=== PATIENT | female | born 1980 | race Caucasian/White ===

== ENCOUNTER 2018-01-26 13:25 | Emergency (ER) | payer OTHER ==
[2018-01-26 13:30] VITALS: BP 113/73; PULSE 86; TEMP 98.2; BMI 27.5
--- NOTE | 2018-01-26 14:01 | PDOC ---
History of Present Illness - General Chief Complaint: Headache Stated Complaint: HEADACHE, NUMBNESS Time Seen by Provider: 01/26/18 13:32 History Source: Patient Exam Limitations: No Limitations - History of Present Illness Initial Comments: CHIEF COMPLAINT: 37 y/o afebrile female with no significant PMH c/o right sided facial headache that feels like tension. HISTORY OF PRESENT ILLNESS: Patient states it started today. She also c/o nausea. She denies fever, head trauma, v/d, neck pain, CP, SOB, abd pain. Pt took no medication for pain. Vital signs on arrival are within normal limits. REVIEW OF SYSTEMS: GENERAL/CONSTITUTIONAL: No fever/chills. No weakness. No weight change. HEAD, EYES, EARS, NOSE AND THROAT: No change in vision. No ear pain or discharge. No sore throat. CARDIOVASCULAR: No chest pain or shortness of breath. RESPIRATORY: No cough, wheezing, or hemoptysis. GASTROINTESTINAL: +nausea. No vomiting, diarrhea or constipation. GENITOURINARY: No dysuria, frequency, or change in urination. MUSCULOSKELETAL: No joint or muscle swelling or pain. No neck or back pain. SKIN: No rash or easy bruising. NEUROLOGIC: +headache. No vertigo, loss of consciousness, or loss of sensation. PHYSICAL EXAM: GENERAL: The patient is awake, alert, and fully oriented, in no acute distress. She is well appearing and ambulatory. HEAD: Normal with no signs of trauma. No hematomas. NECK: Some TTP of right trapezius and scalene muscles. Full ROM of cervical spine. ENT: Pupils equal, round and reactive to light, extraocular movements intact, sclera anicteric, conjunctiva clear. No nystagmus. LUNGS: Clear to auscultation bilaterally. Normal excursion. No respiratory distress or use of accessory muscles. CV: RRR, S1/S2, no MRG. Cap refill < 2 sec. ABDOMEN: Soft, non-distended, non-tender even to deep palpation, no hepatomegaly or splenomegaly, no masses. EXTREMITIES: Normal range of motion, no edema. NEUROLOGICAL: Normal speech, normal gait. CN II-XII grossly intact. Normal finger to nose. Normal rapid alternating movements. PSYCH: Normal mood, normal affect. SKIN: Warm, dry, normal turgor, no rashes or lesions noted. Past History - Past Medical History Allergies/Adverse Reactions: Allergies Allergy/AdvReac Type Severity Reaction Status Date / Time No Known Allergies Allergy Verified 01/26/18 13:31 Home Medications: Ambulatory Orders NK [No Known Home Medication] 01/26/18 COPD: No - Surgical History Abdominal Surgery: Yes (GASTRIC) - Suicide/Smoking/Psychosocial Hx Smoking History: Never smoked *Physical Exam - Vital Signs Last Vital Signs Temp Pulse Resp BP Pulse Ox 98.2 F 86 18 113/73 100 01/26/18 13:28 01/26/18 13:28 01/26/18 13:28 01/26/18 13:28 01/26/18 13:28 Medical Decision Making - Medical Decision Making A/P: 37 y/o female with what sounds like a tension headache. Plan is as follows: 1. hcg hcg - negative 2. IM toradol and decadron After toradol and decadron patient states her headache has resolved. Will discharge to home with instructions to take Motrin every 6 hours for headache, drink plenty of fluids and f/u with Dr. Del Cid on Monday. The patient verbalizes understanding of all instructions, has no further questions and is awaiting discharge. *DC/Admit/Observation/Transfer Diagnosis at time of Disposition: Headache Qualifiers: Headache type: tension-type Headache chronicity pattern: acute headache Intractability: not intractable Qualified Code(s): G44.209 - Tension-type headache, unspecified, not intractable - Discharge Dispostion Disposition: HOME Condition at time of disposition: Improved - Referrals Referrals: ON STAFF,NOT [Primary Care Provider] - Deon Del Cid MD [Staff Physician] - (Call Monday) - Patient Instructions Printed Discharge Instructions: DI for Hormonal and Tension Headaches, DI for Headache Additional Instructions: Discharge Instructions: -You most likely have a tension type headache -Please take 600mg of over the counter ibuprofen every 6 hours for headache -Drink at least 64 oz of water daily -Call Dr. Del Cid on Monday to schedule follow up appointment -Return to the ER with any worsening or concerning symptoms Instrucciones de descarga: -Tu ms probable es que tengas dolor de va tipo tensional - Lillian 600 mg de ibuprofeno sin receta cada 6 horas para el dolor de va -Nikki al menos 64 oz de agua al da [place] al [place] el ambrocio para programar dede mickey de seguimiento -Volver a la rama de urgencias con cualquier empeoramiento o sntomas Print Language: [place] - Post Discharge Activity
[2018-01-26] MEDS ORDERED: DEXAMETHASONE SOD PHOSPHATE 10 MG/1 ML VIAL IM ONE (15:06)
[2018-01-26] MEDS ORDERED: KETOROLAC TROMETHAMINE 60 MG/2 ML VIAL IM ONE (15:06)
[2018-01-26] MEDS ORDERED: KETOROLAC TROMETHAMINE 60 MG/2 ML VIAL ONE (15:12)
[2018-01-26] MEDS ORDERED: DEXAMETHASONE SOD PHOSPHATE 10 MG/1 ML VIAL ONE (15:12)
== END 2018-01-26 15:54 | disposition home or self-care (01) ==
LOC: JERFT 13:25
PROC: 3E0233Z Introduction of Anti-inflammatory into Muscle, Percutaneous Approach (ICD-10-PCS; principal; 2018-01-26)
PROC: 3E0233Z Introduction of Anti-inflammatory into Muscle, Percutaneous Approach (ICD-10-PCS; 2018-01-26)
DX: G44.209 Tension-type headache, unspecified, not intractable (principal)
CPT/HCPCS: 84703; 99281-25; J1100

== ENCOUNTER 2020-07-30 11:37 | Emergency (ER) | payer SELFPAY ==
[2020-07-30 11:46] VITALS: BP 115/80; PULSE 93; TEMP 98.3; BMI 28.3
[2020-07-30 13:53] LABS: BASO % 0.9 % (0-2.0); EOS % 2.4 % (0-4.5); HEMATOCRIT 39.9 % (32.4-45.2); HEMOGLOBIN 13.6 GM/dL (10.7-15.3); LYMPH % 27.9 % (8-40); MCH 30.9 pg (25.7-33.7); MCHC 34.2 g/dl (32.0-36.0); MEAN CELL VOLUME 90.3 fl (80-96); MEAN PLT VOLUME 8.7 fl (7.5-11.1); MONO % 8.3 % (3.8-10.2); NEUT % 60.5 % (42.8-82.8); PLATELET COUNT 285 K/MM3 (134-434); RBC 4.42 M/mm3 (3.60-5.2); RDW 13.2 % (11.6-15.6); WHITE BLOOD COUNT 4.4 K/mm3 (4.0-10.0)
[2020-07-30 14:01] LABS: INR 0.86 (0.83-1.09); PROTHROMBIN TIME (PATIENT) 10.5 SEC (9.7-13.0)
[2020-07-30 14:04] LABS: ACTIVATED PTT 32.2 SECONDS (25.2-36.5)
[2020-07-30 14:17] LABS: CHLORIDE 106 mmol/L (98-107); POTASSIUM 4.2 mmol/L (3.5-5.1); SODIUM 137 mmol/L (136-145)
[2020-07-30 14:19] LABS: CALCIUM 8.7 mg/dL (8.5-10.1); GLUCOSE,RANDOM 96 mg/dL (74-106)
[2020-07-30 14:20] LABS: ALBUMIN 3.8 g/dl (3.4-5.0); ANION GAP 5 MMOL/L (8-16); BLOOD UREA NITROGEN 8.3 mg/dL (7-18); CO2 26 mmol/L (21-32)
[2020-07-30 14:23] LABS: CREATININE 0.6 mg/dL (0.55-1.3); SGOT/AST 19 U/L (15-37); SGPT/ALT 26 U/L (13-61)
[2020-07-30 14:24] LABS: BILIRUBIN,TOTAL 0.3 mg/dL (0.2-1); TOT PROT 7.3 g/dl (6.4-8.2)
[2020-07-30 14:25] LABS: ALK PHOS 95 U/L (45-117)
[2020-07-30] MEDS ORDERED: NAPROXEN 500 MG TABLET PO ONE (15:01)
[2020-07-30] MEDS ORDERED: NAPROXEN 500 MG TABLET ONE (15:06)
== END 2020-07-30 15:09 | disposition home or self-care (01) ==
LOC: JER 11:37
DX: R07.89 Other chest pain (principal)
CPT/HCPCS: 36415; 71046-TC-FY; 80053; 82550; 84484; 84703; 85025; 85610; 85730; 93005; 93010; 99284-25

== ENCOUNTER 2020-12-24 08:21 | Emergency (ER) | payer OTHER ==
[2020-12-24 08:32] VITALS: BP 112/74; PULSE 75; TEMP 98.3; BMI 27.9
[2020-12-24] MEDS ORDERED: ASPIRIN 81 MG CHEWABLE TABLETS PO ONE (10:15)
[2020-12-24] MEDS ORDERED: ACETAMINOPHEN 500 MG TABLET (FP) PO ONE (10:16)
[2020-12-24] MEDS ORDERED: ACETAMINOPHEN 500 MG TABLET (FP) ONE (11:22)
[2020-12-24] MEDS ORDERED: ASPIRIN 81 MG CHEWABLE TABLETS ONE (11:31)
[2020-12-24 11:51] LABS: BASO % 0.7 % (0-2.0); EOS % 1.3 % (0-4.5); HEMOGLOBIN 13.7 GM/dL (10.7-15.3); LYMPH % 28.8 % (8-40); MCH 30.9 pg (25.7-33.7); MCHC 34.3 g/dl (32.0-36.0); MEAN CELL VOLUME 90.1 fl (80-96); MEAN PLT VOLUME 9.1 fl (7.5-11.1); NEUT % 62.2 % (42.8-82.8); PLATELET COUNT 269 10^3/uL (134-434); RBC 4.44 M/mm3 (3.60-5.2); RDW 13.5 % (11.6-15.6); WHITE BLOOD COUNT 3.7 K/mm3 (4.0-10.0)
[2020-12-24 11:53] LABS: EPI CELLS 9 /uL (0-25.1); HYALINE CASTS 0 /uL (0-3.1); PH,URINE 8.5 (5.0-8.0); URINE APPEARANCE CLEAR; URINE BACTERIA 1383 /uL (0-1359); URINE BILIRUBIN NEGATIVE (NEGATIVE); URINE COLOR YELLOW; URINE GLUCOSE (UA) NEGATIVE (NEGATIVE); URINE KETONE NEGATIVE (NEGATIVE); URINE LEUK ESTERASE NEGATIVE (NEGATIVE); URINE NITRITE NEGATIVE (NEGATIVE); URINE PROTEIN NEGATIVE (NEGATIVE); URINE RBC 6 /uL (0-23.9); URINE UROBILINOGEN 0.2 mg/dL (0.2-1.0); URINE WBC 7 /uL (0-25.8)
[2020-12-24 11:59] LABS: HCG,QUALITATIVE URINE NEGATIVE
[2020-12-24 12:03] LABS: CHLORIDE 106 mmol/L (98-107); SODIUM 139 mmol/L (136-145)
[2020-12-24 12:04] LABS: ALBUMIN 3.6 g/dl (3.4-5.0)
[2020-12-24 12:05] LABS: ANION GAP 5 MMOL/L (8-16); CO2 28 mmol/L (21-32); GLUCOSE,RANDOM 109 mg/dL (74-106); MAGNESIUM 2.2 mg/dL (1.8-2.4)
[2020-12-24 12:08] LABS: CREATININE 0.7 mg/dL (0.55-1.3); SGOT/AST 25 U/L (15-37); SGPT/ALT 30 U/L (13-61)
[2020-12-24 12:10] LABS: BILIRUBIN,TOTAL 0.4 mg/dL (0.2-1); TOT PROT 7.1 g/dl (6.4-8.2)
[2020-12-24 12:11] LABS: ALK PHOS 70 U/L (45-117)
== END 2020-12-24 12:30 | disposition home or self-care (01) ==
LOC: JER 08:21
DX: M94.0 Chondrocostal junction syndrome [Tietze] (principal)
CPT/HCPCS: 36415; 71046-TC-FY; 80053; 81003; 82550; 83735; 84484; 84703; 85025; 93005; 93010; 99285-25

== ENCOUNTER 2022-01-17 12:41 | Emergency (ER) | payer OTHER ==
[2022-01-17 12:52] VITALS: BP 126/81; PULSE 82; RESP 17; TEMP 97.5; BMI 28.8
[2022-01-17] MEDS ORDERED: IBUPROFEN 400 MG TABLET (FP) PO ONE ×2 (13:31→13:32)
== END 2022-01-17 14:34 | disposition home or self-care (01) ==
LOC: JERFT 12:41
DX: R07.9 Chest pain, unspecified (principal)
CPT/HCPCS: 71046-TC-FY; 93005; 93010; 99284-25

== ENCOUNTER 2022-11-03 08:45 | Emergency (ER) | payer OTHER ==
[2022-11-03 08:55] VITALS: BP 121/87; PULSE 71; RESP 17; TEMP 98.3; BMI 30.9
[2022-11-03] MEDS ORDERED: MECLIZINE HCL 25 MG TABLET (FP) PO ONE (09:49)
[2022-11-03] MEDS ORDERED: MECLIZINE HCL 25 MG TABLET (FP) ONE (09:50)
== END 2022-11-03 09:59 | disposition home or self-care (01) ==
LOC: JERFT 08:45 → JER 08:45 → JERFT 09:59
DX: R42 Dizziness and giddiness (principal); H93.8X1 Other specified disorders of right ear; H93.11 Tinnitus, right ear; H92.01 Otalgia, right ear
CPT/HCPCS: 99283-25

== ENCOUNTER 2023-01-27 19:36 | Inpatient (IN) | payer OTHER ==
[2023-01-27 19:43] VITALS: BMI 29.9
[2023-01-27] MEDS ORDERED: SODIUM CHLORIDE 1,000 ML IV STA (20:11)
[2023-01-27] MEDS ORDERED: ONDANSETRON 4 MG/2 ML VIAL IVPUSH ONE (20:12)
[2023-01-27] MEDS ORDERED: ACETAMINOPHEN 1000 MG/100 ML BAG IVPB ONE (20:17)
[2023-01-27] MEDS ORDERED: ONDANSETRON 4 MG/2 ML VIAL ONE (20:17)
[2023-01-27] MEDS ORDERED: FAMOTIDINE 20 MG/50 ML IVPB 20 MG/50 ML MG IVPB ONE ×2 (20:18→20:20)
[2023-01-27] MEDS ORDERED: ACETAMINOPHEN INJECTION 100 ML IVPB ONE (20:19)
[2023-01-27] MEDS ORDERED: MAG HYDROX/AL HYDROX/SIMETH -MYLANTA- ORAL SUSPENSION PO ONE (20:42)
[2023-01-27] MEDS ORDERED: SUCRALFATE 1 GM TABLET (FP) PO ONE (20:42)
[2023-01-27] MEDS ORDERED: METOCLOPRAMIDE HCL INJECTION 10 MG/2 ML VIAL IVPB ONE (20:42)
[2023-01-27 20:54] LABS: BASO % 0.7 % (0-2.0); EOS % 0.8 % (0-4.5); HEMATOCRIT 37.4 % (32.4-45.2); HEMOGLOBIN 12.5 GM/dL (10.7-15.3); LYMPH % 21.8 % (8-40); MCH 27.7 pg (25.7-33.7); MCHC 33.3 g/dl (32.0-36.0); MEAN CELL VOLUME 83.3 fl (80-96); MEAN PLT VOLUME 8.4 fl (7.5-11.1); MONO % 10.7 % (3.8-10.2); PLATELET COUNT 349 10^3/uL (134-434); RBC 4.49 M/mm3 (3.60-5.2); RDW 15.6 % (11.6-15.6); WHITE BLOOD COUNT 7.3 K/mm3 (4.0-10.0)
[2023-01-27] MEDS ORDERED: SUCRALFATE 1 GM TABLET (FP) ONE (20:59)
[2023-01-27] MEDS ORDERED: METOCLOPRAMIDE HCL INJECTION 10 MG/2 ML VIAL ONE (21:00)
[2023-01-27] MEDS ORDERED: MAG HYDROX/AL HYDROX/SIMETH 30 ML UNIT-DOSE CUP ONE (21:00)
[2023-01-27 21:06] LABS: CALCIUM 8.6 mg/dL (8.5-10.1)
[2023-01-27 21:07] LABS: ALBUMIN 3.6 g/dl (3.4-5.0); BLOOD UREA NITROGEN 9.3 mg/dL (7-18)
[2023-01-27 21:10] LABS: CREATININE 0.7 mg/dL (0.55-1.3)
[2023-01-27 21:11] LABS: BILIRUBIN,TOTAL 0.4 mg/dL (0.2-1); TOT PROT 7.6 g/dl (6.4-8.2)
[2023-01-27 22:26] LABS: EPI CELLS 7 /uL (0-25.1); HYALINE CASTS 0 /uL (0-3.1); URINE APPEARANCE CLEAR; URINE BACTERIA 291 /uL (0-1359); URINE BILIRUBIN NEGATIVE (NEGATIVE); URINE COLOR YELLOW; URINE GLUCOSE (UA) NEGATIVE (NEGATIVE); URINE KETONE NEGATIVE (NEGATIVE); URINE LEUK ESTERASE NEGATIVE (NEGATIVE); URINE NITRITE NEGATIVE (NEGATIVE); URINE PROTEIN NEGATIVE (NEGATIVE); URINE RBC 41 /uL (0-23.9); URINE WBC 4 /uL (0-25.8)
[2023-01-28] MEDS ORDERED: SODIUM CHLORIDE 0.9% 500 ML INFUS.BAG IV ONE ×2 (01:30→04:02)
[2023-01-28 03:16] LABS: MAGNESIUM 1.9 mg/dL (1.8-2.4)
[2023-01-28] MEDS ORDERED: LORazepam 1 MG TABLET PO ONE (03:25)
[2023-01-28] MEDS ORDERED: LORazepam 1 MG TABLET ONE (03:33)
[2023-01-28] MEDS ORDERED: chlordiazePOXIDE HCL 25 MG CAPSULE PO PRN (05:26)
[2023-01-28] MEDS ORDERED: ONDANSETRON 4 MG/2 ML VIAL IVPUSH PRN (05:40)
[2023-01-28] MEDS ORDERED: LACTATED RINGERS SOLUTION 1,000 ML/1,000 ML INFUS.BAG IV SCH (05:45)
[2023-01-28 05:56] LABS: METHADONE, UR NEGATIVE (NEGATIVE); PHENCYCLIDINE,URINE NEGATIVE (NEGATIVE)
[2023-01-28 05:57] LABS: COCAINE, UR NEGATIVE (NEGATIVE); OPIATES, URI NEGATIVE (NEGATIVE); URINE BARBITURATES NEGATIVE (NEGATIVE)
[2023-01-28 06:14] LABS: URINE AMPHETAMINES NEGATIVE (NEGATIVE); URINE BENZODIAZEPINES NEGATIVE (NEGATIVE)
[2023-01-28 08:24] LABS: HEMATOCRIT 35.5 % (32.4-45.2); HEMOGLOBIN 11.4 GM/dL (10.7-15.3); MCH 27.2 pg (25.7-33.7); MCHC 32.2 g/dl (32.0-36.0); MEAN CELL VOLUME 84.3 fl (80-96); MEAN PLT VOLUME 8.5 fl (7.5-11.1); PLATELET COUNT 302 10^3/uL (134-434); RBC 4.21 M/mm3 (3.60-5.2); RDW 15.5 % (11.6-15.6); WHITE BLOOD COUNT 6.8 K/mm3 (4.0-10.0)
[2023-01-28 08:43] LABS: POTASSIUM 3.4 mmol/L (3.5-5.1)
[2023-01-28 08:53] LABS: ALBUMIN 3.4 g/dl (3.4-5.0); BLOOD UREA NITROGEN 7.1 mg/dL (7-18)
[2023-01-28 08:56] LABS: CREATININE 0.7 mg/dL (0.55-1.3)
[2023-01-28 08:57] LABS: BILIRUBIN,DIRECT 1.2 mg/dL (0.0-0.2); BILIRUBIN,TOTAL 1.6 mg/dL (0.2-1)
[2023-01-28 08:58] LABS: TOT PROT 6.9 g/dl (6.4-8.2)
[2023-01-28] MEDS: FAMOTIDINE 20 MG/50 ML IVPB 20 MG/50 ML MG IVPB SCH ×2 (09:19→22:23)
[2023-01-28 11:04] LABS: MAGNESIUM 1.7 mg/dL (1.8-2.4)
[2023-01-28] MEDS: chlordiazePOXIDE HCL 25 MG CAPSULE PO SCH ×3 (11:24→22:23)
[2023-01-28] MEDS: LACTATED RINGERS SOLUTION 1,000 ML/1,000 ML INFUS.BAG IV SCH (12:17)
[2023-01-28] MEDS: KCL 10 MEQ IVPB 10 MEQ/100 ML INFUS.BAG IVPB SCH ×2 (12:21→14:35)
[2023-01-28 12:31] LABS: INR 1.17 (0.83-1.09); PROTHROMBIN TIME (PATIENT) 13.6 SEC (9.7-13.0)
[2023-01-28] MEDS ORDERED: HEPARIN NA (PORCINE) 5,000 UNITS/ML 1ML VIAL SQ SCH (22:00)
[2023-01-28] MEDS: MELATONIN 5 MG TABLETS PO PRN (23:07)
[2023-01-29] MEDS: chlordiazePOXIDE HCL 25 MG CAPSULE PO SCH ×4 (06:06→22:33)
[2023-01-29 08:52] LABS: BASO % 0.7 % (0-2.0); EOS % 2.6 % (0-4.5); HEMATOCRIT 34.1 % (32.4-45.2); HEMOGLOBIN 11.1 GM/dL (10.7-15.3); LYMPH % 15.9 % (8-40); MCH 27.6 pg (25.7-33.7); MCHC 32.6 g/dl (32.0-36.0); MEAN CELL VOLUME 84.8 fl (80-96); MEAN PLT VOLUME 8.6 fl (7.5-11.1); MONO % 10.5 % (3.8-10.2); NEUT % 70.3 % (42.8-82.8); PLATELET COUNT 265 10^3/uL (134-434); RBC 4.02 M/mm3 (3.60-5.2); RDW 15.7 % (11.6-15.6); WHITE BLOOD COUNT 3.9 K/mm3 (4.0-10.0)
[2023-01-29 08:54] LABS: INR 1.33 (0.83-1.09); PROTHROMBIN TIME (PATIENT) 15.4 SEC (9.7-13.0)
[2023-01-29 09:11] LABS: POTASSIUM 3.7 mmol/L (3.5-5.1)
[2023-01-29 09:16] LABS: ALBUMIN 2.8 g/dl (3.4-5.0); BILIRUBIN,DIRECT 1.4 mg/dL (0.0-0.2); BLOOD UREA NITROGEN 3.6 mg/dL (7-18); CALCIUM 8.3 mg/dL (8.5-10.1)
[2023-01-29] MEDS: FAMOTIDINE 20 MG/50 ML IVPB 20 MG/50 ML MG IVPB SCH ×2 (09:17→22:33)
[2023-01-29 09:19] LABS: CREATININE 0.5 mg/dL (0.55-1.3)
[2023-01-29 09:21] LABS: BILIRUBIN,TOTAL 1.9 mg/dL (0.2-1)
[2023-01-29] MEDS: PIPERACILLIN/TAZOB 3.375 GM 3.375 GM in DEXTROSE 5%-WATER - 50 ML IVPB SCH ×2 (12:05→17:07)
[2023-01-29] MEDS: LACTATED RINGERS SOLUTION 1,000 ML/1,000 ML INFUS.BAG IV SCH ×2 (17:07→17:47)
[2023-01-29] MEDS: MELATONIN 5 MG TABLETS PO PRN (22:34)
[2023-01-30] MEDS: PIPERACILLIN/TAZOB 3.375 GM 3.375 GM in DEXTROSE 5%-WATER - 50 ML IVPB SCH ×3 (01:21→18:09)
[2023-01-30] MEDS: chlordiazePOXIDE HCL 25 MG CAPSULE PO SCH ×4 (05:49→22:48)
[2023-01-30] MEDS: LACTATED RINGERS SOLUTION 1,000 ML/1,000 ML INFUS.BAG IV SCH ×2 (05:51→13:58)
[2023-01-30 09:18] LABS: EOS % 3.7 % (0-4.5); HEMATOCRIT 37.6 % (32.4-45.2); LYMPH % 25.6 % (8-40); MCH 27.2 pg (25.7-33.7); MEAN CELL VOLUME 85.1 fl (80-96); MEAN PLT VOLUME 8.6 fl (7.5-11.1); MONO % 9.9 % (3.8-10.2); NEUT % 59.8 % (42.8-82.8); PLATELET COUNT 300 10^3/uL (134-434); RBC 4.42 M/mm3 (3.60-5.2); WHITE BLOOD COUNT 3.4 K/mm3 (4.0-10.0)
[2023-01-30] MEDS: FAMOTIDINE 20 MG/50 ML IVPB 20 MG/50 ML MG IVPB SCH ×2 (09:18→22:48)
[2023-01-30 09:44] LABS: CHLORIDE 109 mmol/L (98-107); POTASSIUM 4.2 mmol/L (3.5-5.1); SODIUM 141 mmol/L (136-145)
[2023-01-30 09:46] LABS: ALBUMIN 3.1 g/dl (3.4-5.0); ANION GAP 5 MMOL/L (8-16); CALCIUM 8.8 mg/dL (8.5-10.1); CO2 27 mmol/L (21-32)
[2023-01-30 09:47] LABS: GLUCOSE,RANDOM 110 mg/dL (74-106)
[2023-01-30 09:49] LABS: CREATININE 0.7 mg/dL (0.55-1.3)
[2023-01-30 09:50] LABS: BILIRUBIN,TOTAL 0.7 mg/dL (0.2-1); SGOT/AST 167 U/L (15-37); SGPT/ALT 595 U/L (13-61); TOT PROT 6.7 g/dl (6.4-8.2)
[2023-01-30 09:52] LABS: ALK PHOS 201 U/L (45-117)
[2023-01-30 09:53] LABS: BLOOD UREA NITROGEN 2.8 mg/dL (7-18)
[2023-01-30 12:11] LABS: POTASSIUM 4.2 mmol/L (3.5-5.1)
[2023-01-30 12:13] LABS: BLOOD UREA NITROGEN 3.1 mg/dL (7-18)
[2023-01-30 12:17] LABS: CREATININE 0.6 mg/dL (0.55-1.3)
[2023-01-30] MEDS: DOCUSATE SODIUM 100 MG CAPSULE (FP) PO SCH (13:54)
[2023-01-30] MEDS: THIAMINE HCL 100 MG TABLET (FP) PO SCH (13:55)
[2023-01-30] MEDS: FOLIC ACID 1 MG TABLET (FP) PO SCH (13:55)
[2023-01-30] MEDS: MULTIVITAMINS (DAILY MVI) TABLET (FP) PO SCH (13:55)
[2023-01-31] MEDS: LACTATED RINGERS SOLUTION 1,000 ML/1,000 ML INFUS.BAG IV SCH ×4 (01:19→20:13)
[2023-01-31] MEDS: PIPERACILLIN/TAZOB 3.375 GM 3.375 GM in DEXTROSE 5%-WATER - 50 ML IVPB SCH ×2 (01:19→09:39)
[2023-01-31] MEDS: chlordiazePOXIDE HCL 10 MG CAPSULE PO SCH ×4 (05:49→22:12)
[2023-01-31] MEDS: DOCUSATE SODIUM 100 MG CAPSULE (FP) PO SCH (09:39)
[2023-01-31] MEDS: MULTIVITAMINS (DAILY MVI) TABLET (FP) PO SCH (09:39)
[2023-01-31] MEDS: THIAMINE HCL 100 MG TABLET (FP) PO SCH (09:39)
[2023-01-31] MEDS: FOLIC ACID 1 MG TABLET (FP) PO SCH (09:39)
[2023-01-31] MEDS: FAMOTIDINE 20 MG/50 ML IVPB 20 MG/50 ML MG IVPB SCH ×2 (10:45→22:10)
[2023-01-31] MEDS ORDERED: PROPOFOL 20 ML ONE (13:10)
[2023-01-31] MEDS ORDERED: ROCURONIUM BROMIDE 50 MG/5 ML SYRINGE ONE (13:10)
[2023-01-31] MEDS ORDERED: ceFAZolin SODIUM 1 GM VIAL ONE ×2 (13:46)
[2023-01-31] MEDS ORDERED: KETOROLAC TROMETHAMINE 30 MG/1 ML VIAL ONE ×2 (13:46)
[2023-01-31] MEDS ORDERED: BUPIVACAINE HCL/PF 0.25% (2.5MG/ML) 10 ML VIAL IJ ONE ×2 (13:46)
[2023-01-31] MEDS ORDERED: ONDANSETRON 4 MG/2 ML VIAL ONE (13:46)
[2023-01-31] MEDS ORDERED: DEXAMETHASONE SOD PHOSPHATE 4 MG/1 ML VIAL ONE (13:46)
[2023-01-31] MEDS ORDERED: NEOSTIGMINE METHYLSULFATE 0.5 MG/1 ML - 10 ML MDV ONE (13:47)
[2023-01-31] MEDS ORDERED: GLYCOPYRROLATE 0.2 MG/1 ML VIAL ONE ×2 (13:47)
[2023-01-31] MEDS ORDERED: ceFAZolin SODIUM 1 GM VIAL IVPB ONE (13:53)
[2023-01-31] MEDS ORDERED: ONDANSETRON 4 MG/2 ML VIAL IVPUSH PRN ×2 (15:17→15:34)
[2023-01-31] MEDS ORDERED: oxyCODONE HCL 5 MG TABLET PO PRN ×2 (15:17→15:34)
[2023-01-31] MEDS ORDERED: LACTATED RINGERS SOLUTION 1,000 ML IV SCH (15:30)
[2023-01-31] MEDS ORDERED: chlordiazePOXIDE HCL 10 MG CAPSULE PO PRN ×2 (15:34)
[2023-01-31] MEDS ORDERED: MELATONIN 5 MG TABLETS PO PRN (15:34)
[2023-01-31] MEDS ORDERED: PIPERACILLIN/TAZOB 3.375 GM 3.375 GM in DEXTROSE 5%-WATER - 50 ML IVPB SCH (18:00)
[2023-02-01] MEDS ORDERED: chlordiazePOXIDE HCL 10 MG CAPSULE PO SCH ×2 (05:00)
[2023-02-01] MEDS: LACTATED RINGERS SOLUTION 1,000 ML/1,000 ML INFUS.BAG IV SCH (05:50)
[2023-02-01 08:53] LABS: HEMATOCRIT 35.9 % (32.4-45.2); HEMOGLOBIN 11.9 GM/dL (10.7-15.3); MCHC 33.2 g/dl (32.0-36.0); MEAN CELL VOLUME 84.3 fl (80-96); MEAN PLT VOLUME 8.7 fl (7.5-11.1); PLATELET COUNT 322 10^3/uL (134-434); RBC 4.26 M/mm3 (3.60-5.2); RDW 15.6 % (11.6-15.6); WHITE BLOOD COUNT 7.7 K/mm3 (4.0-10.0)
[2023-02-01 09:05] VITALS: RESP 18
[2023-02-01 09:17] LABS: POTASSIUM 3.8 mmol/L (3.5-5.1)
[2023-02-01 09:26] LABS: ALBUMIN 3.1 g/dl (3.4-5.0); CALCIUM 8.6 mg/dL (8.5-10.1)
[2023-02-01 09:28] LABS: BLOOD UREA NITROGEN 4.9 mg/dL (7-18); MAGNESIUM 1.8 mg/dL (1.8-2.4)
[2023-02-01 09:30] LABS: CREATININE 0.6 mg/dL (0.55-1.3); PHOSPHOROUS 3.1 mg/dL (2.5-4.9)
[2023-02-01 09:31] LABS: BILIRUBIN,TOTAL 0.7 mg/dL (0.2-1); TOT PROT 6.7 g/dl (6.4-8.2)
[2023-02-01] MEDS: MULTIVITAMINS (DAILY MVI) TABLET (FP) PO SCH (10:19)
[2023-02-01] MEDS: THIAMINE HCL 100 MG TABLET (FP) PO SCH (10:19)
[2023-02-01] MEDS: DOCUSATE SODIUM 100 MG CAPSULE (FP) PO SCH (10:20)
[2023-02-01] MEDS: FOLIC ACID 1 MG TABLET (FP) PO SCH (10:20)
[2023-02-01] MEDS: FAMOTIDINE 20 MG/50 ML IVPB 20 MG/50 ML MG IVPB SCH ×2 (10:20→22:05)
[2023-02-01] MEDS ORDERED: chlordiazePOXIDE 5 MG CAPSULE PO PRN (14:16)
[2023-02-01] MEDS ORDERED: oxyCODONE HCL 5 MG TABLET PO ONE (23:30)
[2023-02-02] MEDS ORDERED: chlordiazePOXIDE HCL 10 MG CAPSULE PO ONE ×2 (05:00)
[2023-02-02 09:26] LABS: HEMATOCRIT 36.5 % (32.4-45.2); HEMOGLOBIN 12.1 GM/dL (10.7-15.3); MCH 27.5 pg (25.7-33.7); MCHC 33.2 g/dl (32.0-36.0); MEAN CELL VOLUME 82.9 fl (80-96); MEAN PLT VOLUME 8.5 fl (7.5-11.1); PLATELET COUNT 337 10^3/uL (134-434); RDW 15.6 % (11.6-15.6); WHITE BLOOD COUNT 6.8 K/mm3 (4.0-10.0)
[2023-02-02] MEDS: DOCUSATE SODIUM 100 MG CAPSULE (FP) PO SCH (09:30)
[2023-02-02] MEDS: THIAMINE HCL 100 MG TABLET (FP) PO SCH (09:30)
[2023-02-02] MEDS: FAMOTIDINE 20 MG/50 ML IVPB 20 MG/50 ML MG IVPB SCH (09:31)
[2023-02-02] MEDS: FOLIC ACID 1 MG TABLET (FP) PO SCH (09:31)
[2023-02-02] MEDS: MULTIVITAMINS (DAILY MVI) TABLET (FP) PO SCH (09:31)
[2023-02-02 10:00] LABS: POTASSIUM 3.9 mmol/L (3.5-5.1)
[2023-02-02 10:05] LABS: CALCIUM 8.7 mg/dL (8.5-10.1)
[2023-02-02 10:06] LABS: ALBUMIN 3.1 g/dl (3.4-5.0); BLOOD UREA NITROGEN 5.8 mg/dL (7-18); MAGNESIUM 1.9 mg/dL (1.8-2.4)
[2023-02-02 10:09] LABS: CREATININE 0.7 mg/dL (0.55-1.3); PHOSPHOROUS 2.7 mg/dL (2.5-4.9)
[2023-02-02 10:10] LABS: BILIRUBIN,TOTAL 0.4 mg/dL (0.2-1)
[2023-02-02 10:11] LABS: TOT PROT 6.7 g/dl (6.4-8.2)
[2023-02-02] MEDS ORDERED: BISACODYL 10 MG SUPP.RECT PR ONE (14:32)
[2023-02-02 18:27] VITALS: BP 129/78; PULSE 80; TEMP 98.7
== END 2023-02-02 19:29 | disposition home or self-care (01) | DRG 263 ==
LOC: JER 19:36 → JERBED 01-28 04:01 → OBSVTOIN 01-28 04:01 → J4S 01-28 06:46
PROVIDERS: ADMIT Internal Medicine; ATTEND Internal Medicine
PROC: 0FT44ZZ Resection of Gallbladder, Percutaneous Endoscopic Approach (ICD-10-PCS; principal; 2023-01-31 13:30)
DX: K80.00 Calculus of gallbladder with acute cholecystitis without obstruction (principal); K70.10 Alcoholic hepatitis without ascites; F10.10 Alcohol abuse, uncomplicated; F41.8 Other specified anxiety disorders; G47.00 Insomnia, unspecified; K44.9 Diaphragmatic hernia without obstruction or gangrene; M62.838 Other muscle spasm; R74.01 Elevation of levels of liver transaminase levels; K76.0 Fatty (change of) liver, not elsewhere classified; R79.89 Other specified abnormal findings of blood chemistry; R42 Dizziness and giddiness; E66.8 Other obesity; Z68.30 Body mass index [BMI] 30.0-30.9, adult; Z98.82 Breast implant status; Z98.84 Bariatric surgery status
CPT/HCPCS: 0241U-QW; 36415; 71045-TC-FY; 74177-TC; 74181-TC; 76705-TC; 80048; 80053; 80076; 80307; 81003; 82150; 82248; 82728; 83516; 83540; 83550; 83690; 83735; 84100; 84703; 85025; 85027; 85610; 86038; 86140; 86705; 87040; 87086; 87340; 87517; 87522; 93005; 93010; 94760; 99285-25; Q9967

== ENCOUNTER 2023-03-25 14:50 | Emergency (ER) | payer OTHER ==
[2023-03-25 14:56] VITALS: BP 130/83; PULSE 87; RESP 18; TEMP 98.7; BMI 30.9
[2023-03-25] MEDS ORDERED: SODIUM CHLORIDE 1,000 ML IV STA (16:38)
[2023-03-25] MEDS ORDERED: FAMOTIDINE 20 MG/50 ML IVPB 20 MG/50 ML MG IVPB ONE ×3 (16:41→17:18)
[2023-03-25] MEDS ORDERED: ONDANSETRON 4 MG/2 ML VIAL IVPUSH ONE (16:41)
[2023-03-25] MEDS ORDERED: ONDANSETRON 4 MG/2 ML VIAL ONE ×2 (16:59→17:17)
[2023-03-25 17:34] LABS: BASO % 0.8 % (0-2.0); EOS % 3.2 % (0-4.5); HEMATOCRIT 37.5 % (32.4-45.2); HEMOGLOBIN 12.3 GM/dL (10.7-15.3); MCH 27.1 pg (25.7-33.7); MCHC 32.9 g/dl (32.0-36.0); MEAN CELL VOLUME 82.3 fl (80-96); MEAN PLT VOLUME 8.3 fl (7.5-11.1); PLATELET COUNT 279 10^3/uL (134-434); RBC 4.56 M/mm3 (3.60-5.2); RDW 14.5 % (11.6-15.6); WHITE BLOOD COUNT 3.4 K/mm3 (4.0-10.0)
[2023-03-25 17:50] LABS: POTASSIUM 3.8 mmol/L (3.5-5.1)
[2023-03-25 17:52] LABS: CALCIUM 8.4 mg/dL (8.5-10.1)
[2023-03-25 17:53] LABS: ALBUMIN 3.2 g/dl (3.4-5.0)
[2023-03-25 17:56] LABS: CREATININE 0.6 mg/dL (0.55-1.3)
[2023-03-25 17:57] LABS: BILIRUBIN,TOTAL 0.3 mg/dL (0.2-1)
[2023-03-25 18:01] LABS: EPI CELLS 14 /uL (0-25.1); HCG,QUALITATIVE URINE Negative; HYALINE CASTS 0 /uL (0-3.1); PH,URINE 5.5 (5.0-8.0); URINE APPEARANCE CLEAR; URINE BACTERIA 60 /uL (0-1359); URINE BILIRUBIN NEGATIVE (NEGATIVE); URINE COLOR YELLOW; URINE GLUCOSE (UA) NEGATIVE (NEGATIVE); URINE KETONE NEGATIVE (NEGATIVE); URINE LEUK ESTERASE NEGATIVE (NEGATIVE); URINE NITRITE NEGATIVE (NEGATIVE); URINE PROTEIN NEGATIVE (NEGATIVE); URINE RBC 11 /uL (0-23.9); URINE UROBILINOGEN 0.2 mg/dL (0.2-1.0); URINE WBC 5 /uL (0-25.8)
== END 2023-03-25 18:38 | disposition home or self-care (01) ==
LOC: JER 14:50
PROC: 3E033GC Introduction of Other Therapeutic Substance into Peripheral Vein, Percutaneous Approach (ICD-10-PCS; principal; 2023-03-25)
PROC: 3E033GC Introduction of Other Therapeutic Substance into Peripheral Vein, Percutaneous Approach (ICD-10-PCS; 2023-03-25)
DX: A08.4 Viral intestinal infection, unspecified (principal); R11.2 Nausea with vomiting, unspecified; R19.7 Diarrhea, unspecified; Z20.822 Contact with and (suspected) exposure to COVID-19
CPT/HCPCS: 0241U-QW; 36415; 80053; 81003; 83690; 84703; 85025; 87086; 99284-25